=== PATIENT | male | born 1960 | race Two or more races ===

== ENCOUNTER 2023-10-06 15:17 | Emergency (ER) | payer OTHER ==
[~2023-10-06] VITALS: Ht 175.3 cm; Wt 81.6 kg
== END 2023-10-06 17:32 | disposition home or self-care (01) ==
LOC: ER 15:18
DX: H68.1 Obstruction of Eustachian tube (principal); T16.9XXA Foreign body in ear, unspecified ear, initial encounter; Z88.0 Allergy status to penicillin